=== PATIENT | male | born 1975 | race Caucasian/White ===

== ENCOUNTER → 2016-08-03 | Outpatient (CLI) | payer BC ==
[~2016-08-03] MED LIST: SUMA100T15 PO
== END | disposition home or self-care (01) ==
LOC: LAB 09:27
DX: L94.0 Localized scleroderma [morphea] (principal)
CPT/HCPCS: 86038

== ENCOUNTER 2016-08-19 20:05 | Emergency (ER) | payer BC ==
[~2016-08-19] VITALS: Ht 182.9 cm; Wt 77.1 kg
[2016-08-19 21:01] LABS: Basophils # (auto) 0 uL; Basophils % (auto) 0.4 % (0.0-2.0); Eosinophils # (auto) 0.3 uL; Eosinophils % (auto) 3.5 % (0.0-7.0); Hematocrit 48.7 % (41.0-53.0); Hemoglobin 16.4 g/dL (13.5-17.5); Lymphocytes # (auto) 2.8 uL; Lymphocytes % (auto) 27.8 % (10.0-50.0); Mean Corpuscular Hemoglobin 28.4 pg (28.0-32.0); Mean Corpuscular Hgb Conc. 33.7 g/dL (32.0-36.0); Mean Corpuscular Volume 84.4 fL (80.0-100.0); Mean Platelet Volume 9.5 fL (7.4-10.4); Monocytes # (auto) 0.7 uL; Monocytes % (auto) 6.5 % (0.0-12.0); Neutrophils # (auto) 6.3 uL; Neutrophils % (auto) 61.8 % (37.0-80.0); Platelet Count (auto) 255 10^3/uL (140-450); White Blood Cell 10.1 10^3/uL (4.4-10.8)
[2016-08-19 21:15] LABS: Urine Bilirubin Negative (Negative); Urine Blood Negative /uL (Negative); Urine Color Yellow (Yellow); Urine Glucose Normal (Normal); Urine Ketone Negative (Negative); Urine Nitrite Negative (Negative); Urine RBC <1 /hpf (0 - 3); Urine Urobilinogen Normal (Negative); Urine pH 5.5 (5.0-8.0)
[2016-08-19 22:09] LABS: Albumin 4.4 g/dL (3.4-5.0); Alkaline Phosphatase 93 U/L (45-117); Anion Gap 7 (5-15); Aspartate Aminotransferase 32 U/L (15-37); BUN/Creatinine Ratio 9.1; Bilirubin, Total 0.5 mg/dL (0.2-1.0); Blood Urea Nitrogen 12 mg/dL (7-18); Calcium 9.1 mg/dL (8.5-10.1); Carbon Dioxide 28 mmol/L (21-32); Chloride 107 mmol/L (98-107); GFR African American 77 mL/min; GFR Non-African American 64 mL/min; Glucose 102 mg/dL (74-106); Magnesium 2.4 mg/dL (1.6-2.6); Sodium 142 mmol/L (136-145); Total Protein 8.2 g/dL (6.4-8.2)
[2016-08-20] MEDS ORDERED: LORazepam 2MG/ML-1ML VIAL IV ONE (02:00)
[2016-08-20 03:29] VITALS: BP 112/76
== END 2016-08-20 03:34 | disposition home or self-care (01) ==
LOC: ER 20:05
DX: R51 Headache (principal); F41.9 Anxiety disorder, unspecified; F32.9 Major depressive disorder, single episode, unspecified; K21.9 Gastro-esophageal reflux disease without esophagitis; E78.5 Hyperlipidemia, unspecified
CPT/HCPCS: 36415; 70450; 80053; 81001; 83735; 84484; 85025; 93005; 94761; 96374; 99285; G0434; J2060

== ENCOUNTER → 2016-12-10 | Outpatient (CLI) | payer BC | END | disposition home or self-care (01) | LOC: XYW 08:25 | PROVIDERS: ATTEND Internal Medicine Cardiovascular Disease | DX: R07.9 Chest pain, unspecified (principal) | CPT/HCPCS: 93017; 93306 ==

== ENCOUNTER → 2017-01-14 | Outpatient (CLI) | payer BC ==
[2017-01-14 11:52] LABS: Basophils # (auto) 0 uL; Basophils % (auto) 0.8 % (0.0-2.0); Eosinophils # (auto) 0.3 uL; Eosinophils % (auto) 5.3 % (0.0-7.0); Hematocrit 46.2 % (41.0-53.0); Hemoglobin 16.3 g/dL (13.5-17.5); Lymphocytes # (auto) 1.9 uL; Lymphocytes % (auto) 33.4 % (10.0-50.0); Mean Corpuscular Hemoglobin 30.2 pg (28.0-32.0); Mean Corpuscular Hgb Conc. 35.3 g/dL (32.0-36.0); Mean Corpuscular Volume 85.4 fL (80.0-100.0); Mean Platelet Volume 9.1 fL (7.4-10.4); Monocytes # (auto) 0.4 uL; Monocytes % (auto) 6.5 % (0.0-12.0); Platelet Count (auto) 213 10^3/uL (140-450); Red Cell Distribution Width 13.1 % (11.6-16.0); White Blood Cell 5.6 10^3/uL (4.4-10.8)
[2017-01-14 12:00] LABS: Urine Bilirubin Negative (Negative); Urine Blood Negative /uL (Negative); Urine Color Yellow (Yellow); Urine Glucose Normal (Normal); Urine Ketone Negative (Negative); Urine Mucus FEW (None Seen); Urine Nitrite Negative (Negative); Urine RBC 1 /hpf (0 - 3); Urine Urobilinogen Normal (Negative); Urine pH 5.5 (5.0-8.0)
[2017-01-14 12:39] LABS: Albumin 4.2 g/dL (3.4-5.0); BUN/Creatinine Ratio 11.6; Bilirubin, Total 0.7 mg/dL (0.2-1.0); Potassium 3.9 mmol/L (3.5-5.1); Total Protein 7.5 g/dL (6.4-8.2)
[2017-01-15 09:07] LABS: Rheumatoid Arthritis Factor <10.0 IU/mL (0.0-13.9)
== END | disposition home or self-care (01) ==
LOC: LAB 11:03
DX: K21.9 Gastro-esophageal reflux disease without esophagitis (principal); R79.89 Other specified abnormal findings of blood chemistry
CPT/HCPCS: 36415; 80053; 81001; 84443; 85025; 86038; 86431

== ENCOUNTER → 2017-06-03 | Outpatient (CLI) | payer BC ==
[2017-06-03 13:35] LABS: Basophils # (auto) 0 uL; Basophils % (auto) 0.6 % (0.0-2.0); Eosinophils # (auto) 0.3 uL; Eosinophils % (auto) 5.5 % (0.0-7.0); Hematocrit 43.5 % (41.0-53.0); Hemoglobin 14.8 g/dL (13.5-17.5); Lymphocytes # (auto) 1.9 uL; Lymphocytes % (auto) 31.3 % (10.0-50.0); Mean Corpuscular Hemoglobin 29.3 pg (28.0-32.0); Mean Corpuscular Hgb Conc. 34.1 g/dL (32.0-36.0); Mean Corpuscular Volume 86.1 fL (80.0-100.0); Monocytes # (auto) 0.5 uL; Monocytes % (auto) 7.9 % (0.0-12.0); Neutrophils # (auto) 3.2 uL; Neutrophils % (auto) 54.7 % (37.0-80.0); Platelet Count (auto) 206 10^3/uL (140-450); Red Blood Cells 5.06 10^6/uL (4.5-5.90); Red Cell Distribution Width 12.8 % (11.8-14.3); White Blood Cell 5.9 10^3/uL (4.4-10.8)
[2017-06-03 13:50] LABS: Urine Bacteria NONE SEEN /hpf (None Seen); Urine Blood Negative /uL (Negative); Urine Mucus FEW (None Seen); Urine Sperm PRESENT /hpf (None Seen); Urine WBC 1 /hpf (0 - 3)
[2017-06-03 14:16] LABS: Bilirubin, Total 0.4 mg/dL (0.2-1.0); Calcium 8.6 mg/dL (8.5-10.1); Potassium 3.9 mmol/L (3.5-5.1); Total Protein 7.2 g/dL (6.4-8.2)
== END | disposition home or self-care (01) ==
LOC: LAB 13:15
PROVIDERS: ATTEND Internal Medicine
DX: R10.9 Unspecified abdominal pain (principal); R11.2 Nausea with vomiting, unspecified
CPT/HCPCS: 36415; 80053; 81001; 82150; 83690; 85025; 85652

== ENCOUNTER 2017-09-08 06:00 | Inpatient (IN) | payer BC ==
[2017-09-06 10:41] LABS: Urine WBC None Seen /hpf (0 - 3)
[2017-09-06 11:05] LABS: Basophils # (auto) 0 uL; Basophils % (auto) 0.9 % (0.0-2.0); Eosinophils # (auto) 0.3 uL; Eosinophils % (auto) 4.9 % (0.0-7.0); Hematocrit 43.6 % (41.0-53.0); Hemoglobin 14.9 g/dL (13.5-17.5); Lymphocytes # (auto) 1.7 uL; Lymphocytes % (auto) 32.1 % (10.0-50.0); Mean Corpuscular Hemoglobin 30.1 pg (28.0-32.0); Mean Corpuscular Hgb Conc. 34.2 g/dL (32.0-36.0); Mean Corpuscular Volume 87.9 fL (80.0-100.0); Monocytes # (auto) 0.5 uL; Neutrophils # (auto) 2.8 uL; Neutrophils % (auto) 53.1 % (37.0-80.0); Platelet Count (auto) 227 10^3/uL (140-450); Red Blood Cells 4.96 10^6/uL (4.5-5.90); Red Cell Distribution Width 14.2 % (11.8-14.3); White Blood Cell 5.3 10^3/uL (4.4-10.8)
[2017-09-06 11:07] LABS: Urine Bacteria NONE SEEN /hpf (None Seen); Urine Blood Negative /uL (Negative); Urine Mucus FEW (None Seen); Urine Specific Gravity 1.015 (1.001-1.035)
[2017-09-06 11:23] LABS: INR 0.94 (0.9-1.15); Partial Thromboplastin Time 25.5 sec (22.64-33.71); Prothrombin Time 10.2 sec (9.37-12.3)
[2017-09-06 11:27] LABS: BUN/Creatinine Ratio 10.9; Bilirubin, Total 0.5 mg/dL (0.2-1.0); Potassium 4.3 mmol/L (3.5-5.1); Total Protein 7.4 g/dL (6.4-8.2)
[~2017-09-08] VITALS: Ht 182.9 cm; Wt 79.0 kg
[~2017-09-08 06:00] MED LIST changes: +BUPR300T28 PO; +BUSP15TA60 PO; +FLUO-125 PO; +QUET25TA46 PO
[2017-09-08] MEDS ORDERED: ceFAZolin 1GM/50ML 50 ML IV ONE (06:36)
[2017-09-08] MEDS ORDERED: fentaNYL CITRATE 100 MCG/2 ML VL ONE (07:33)
[2017-09-08] MEDS ORDERED: MIDAZOLAM HCL 1MG/1ML-2 ML VIAL ONE (07:34)
[2017-09-08] MEDS ORDERED: MEPERIDINE HCL (50 MG/ML) 1 ML VIAL ONE (07:34)
[2017-09-08] MEDS ORDERED: PROPOFOL 10 MG/ML 20 ML IV ONE (07:38)
[2017-09-08] MEDS ORDERED: DEXAMETHASONE SOD PHOS 10MG/1ML VIAL INJ ONE (07:38)
[2017-09-08] MEDS ORDERED: GLYCOPYRROLATE 0.2 MG/ML 1ML VIAL ONE (07:53)
[2017-09-08] MEDS ORDERED: NEOSTIGMINE 1 MG/ML INJ (10mg/10ML VIAL) ONE (07:53)
[2017-09-08] MEDS ORDERED: ROCURONIUM 10MG/ML 10ML VIAL IV ONE (07:53)
[2017-09-08] MEDS ORDERED: LABETALOL HCL 5 MG/ML 4ML SYRINGE IV PRN (08:00)
[2017-09-08] MEDS ORDERED: KETOROLAC TROMETH 30 MG/ML 1ML VIAL IV ONE (08:00)
[2017-09-08] MEDS ORDERED: ONDANSETRON HCL 4 MG/2 ML VIAL IV ONE (08:00)
[2017-09-08] MEDS ORDERED: MORPHINE SULFATE 8mg/ml INJ SDV IV ONE (08:00)
[2017-09-08] MEDS ORDERED: MIDAZOLAM HCL 1MG/1ML-2 ML VIAL IV PRN (08:00)
[2017-09-08] MEDS ORDERED: ePHEDrine SULFATE 50 MG/ML AMP IV PRN (08:00)
[2017-09-08] MEDS: MORPHINE SULFATE 8mg/ml INJ SDV IV PRN ×5 (08:57→21:52)
[2017-09-08 12:00] VITALS: BP 113/71
[2017-09-08] MEDS ORDERED: ONDANSETRON HCL 4 MG/2 ML VIAL IV PRN ×2 (12:00→12:30)
[2017-09-08] MEDS ORDERED: SUMAtriptan SUCCINATE 25 MG TAB PO PRN ×2 (12:30→15:15)
[2017-09-08] MEDS ORDERED: LORazepam 2MG/ML-1ML VIAL IV PRN (12:30)
[2017-09-08] MEDS ORDERED: HYDROcodone-ACET 5/325MG TAB PO PRN (12:30)
[2017-09-08] MEDS: D5W/SOD CHL 0.45%/KCL 20MEQ 1,000 ML IV SCH (12:43)
[2017-09-08] MEDS: busPIRone HCL 10 MG TAB PO ONE ×2 (12:43→12:45)
[2017-09-08] MEDS: PANTOPRAZOLE 40 MG TAB PO ONE ×2 (12:44→12:45)
[2017-09-08] MEDS: FLUoxetine HCL 20 MG CAP PO ONE ×2 (12:44→12:45)
[2017-09-08] MEDS: ceFAZolin 1GM/50ML 50 ML IV SCH ×2 (15:08→21:51)
[2017-09-08 16:59] VITALS: BP 107/65
[2017-09-08 21:34] VITALS: BP 115/69
[2017-09-08] MEDS: busPIRone HCL 10 MG TAB PO SCH (21:51)
[2017-09-08] MEDS ORDERED: QUEtiapine FUMARATE 25 MG TAB PO SCH (22:00)
[2017-09-09] MEDS: D5W/SOD CHL 0.45%/KCL 20MEQ 1,000 ML IV SCH (01:20)
[2017-09-09] MEDS: MORPHINE SULFATE 8mg/ml INJ SDV IV PRN (01:46)
[2017-09-09] MEDS: ceFAZolin 1GM/50ML 50 ML IV SCH (05:24)
[2017-09-09 05:54] LABS: Basophils # (auto) 0 uL; Basophils % (auto) 0.2 % (0.0-2.0); Eosinophils # (auto) 0 uL; Eosinophils % (auto) 0.3 % (0.0-7.0); Hematocrit 37.4 % (41.0-53.0); Hemoglobin 13.3 g/dL (13.5-17.5); Lymphocytes # (auto) 1.4 uL; Lymphocytes % (auto) 14.4 % (10.0-50.0); Mean Corpuscular Hemoglobin 31.5 pg (28.0-32.0); Mean Corpuscular Hgb Conc. 35.5 g/dL (32.0-36.0); Mean Corpuscular Volume 88.7 fL (80.0-100.0); Monocytes # (auto) 0.7 uL; Monocytes % (auto) 7.3 % (0.0-12.0); Neutrophils # (auto) 7.5 uL; Neutrophils % (auto) 77.8 % (37.0-80.0); Platelet Count (auto) 182 10^3/uL (140-450); Red Blood Cells 4.22 10^6/uL (4.5-5.90); White Blood Cell 9.6 10^3/uL (4.4-10.8)
[2017-09-09 06:36] LABS: BUN/Creatinine Ratio 10.6; Bilirubin, Total 0.4 mg/dL (0.2-1.0); Calcium 7.6 mg/dL (8.5-10.1); Potassium 5.1 mmol/L (3.5-5.1); Total Protein 5.5 g/dL (6.4-8.2)
[2017-09-09 08:16] VITALS: BP 105/73
[2017-09-09] MEDS: busPIRone HCL 10 MG TAB PO SCH (09:43)
[2017-09-09] MEDS ORDERED: PANTOPRAZOLE 40 MG TAB PO SCH (10:00)
[2017-09-09] MEDS ORDERED: FLUoxetine HCL 20 MG CAP PO SCH (10:00)
[2017-09-09] MEDS ORDERED: SUMAtriptan SUCCINATE 25 MG TAB PO SCH (10:00)
[2017-09-09 11:42] VITALS: BP 108/76
== END 2017-09-09 13:30 | disposition home or self-care (01) | DRG 419 ==
LOC: SUR 06:00 → WEST WING 06:01
PROVIDERS: ADMIT Surgery; ATTEND Internal Medicine
PROC: 0FT44ZZ Resection of Gallbladder, Percutaneous Endoscopic Approach (ICD-10-PCS; principal; 2017-09-08 07:32)
DX: K80.10 Calculus of gallbladder with chronic cholecystitis without obstruction (principal); F15.10 Other stimulant abuse, uncomplicated; F31.9 Bipolar disorder, unspecified; I10 Essential (primary) hypertension; F41.9 Anxiety disorder, unspecified; G43.909 Migraine, unspecified, not intractable, without status migrainosus; Z90.49 Acquired absence of other specified parts of digestive tract; Z95.2 Presence of prosthetic heart valve; Z79.899 Other long term (current) drug therapy
CPT/HCPCS: 36415; 80053; 81001; 85025; 85610; 85730; 86850; 86900; 86901; J0690; J1100; J1885; J2250; J2270; J2405; J2704

== ENCOUNTER 2019-03-22 12:26 | Inpatient (IN) | payer BC ==
[~2019-03-22] VITALS: Ht 185.4 cm; Wt 82.4 kg
[2019-03-22 18:38] LABS: Basophils # (auto) 0.1 uL; Basophils % (auto) 0.8 % (0.0-2.0); Eosinophils # (auto) 0.3 uL; Eosinophils % (auto) 3.7 % (0.0-7.0); Hematocrit 45.7 % (41.0-53.0); Hemoglobin 15.5 g/dL (13.5-17.5); Lymphocytes # (auto) 1.7 uL; Lymphocytes % (auto) 25.5 % (10.0-50.0); Mean Corpuscular Hemoglobin 30.6 pg (28.0-32.0); Mean Corpuscular Hgb Conc. 33.9 g/dL (32.0-36.0); Mean Corpuscular Volume 90.4 fL (80.0-100.0); Monocytes # (auto) 0.5 uL; Monocytes % (auto) 7.9 % (0.0-12.0); Neutrophils # (auto) 4.2 uL; Neutrophils % (auto) 62.1 % (37.0-80.0); Nucleated Red Blood Cells % 0.1 %; Platelet Count (auto) 236 10^3/uL (140-450); Red Blood Cells 5.05 10^6/uL (4.5-5.90); Red Cell Distribution Width 13.3 % (11.8-14.3); White Blood Cell 6.8 10^3/uL (4.4-10.8)
[2019-03-22 18:52] LABS: Albumin 3.8 g/dL (3.4-5.0); BUN/Creatinine Ratio 15.4; Calcium 8.9 mg/dL (8.5-10.1); Magnesium 2.3 mg/dL (1.6-2.6); Potassium 4.2 mmol/L (3.5-5.1)
[2019-03-22 18:55] LABS: Bilirubin, Total 0.3 mg/dL (0.2-1.0); Total Protein 7.6 g/dL (6.4-8.2)
[2019-03-22] MEDS ORDERED: ACETAMINOPHEN 325 MG TAB PO PRN (21:15)
[2019-03-22] MEDS ORDERED: TEMAZEPAM 15 MG CAP PO PRN (21:15)
[2019-03-22] MEDS ORDERED: MORPHINE SULFATE 4 MG/ML SYR/VIAL IV PRN (21:15)
[2019-03-22] MEDS ORDERED: HYDROcodone-ACET 5/325MG TAB PO PRN (21:15)
[2019-03-22] MEDS ORDERED: ONDANSETRON HCL 4 MG/2 ML VIAL IV PRN (21:15)
[2019-03-23] MEDS: busPIRone HCL 10 MG TAB PO SCH ×4 (04:24→21:56)
[2019-03-23] MEDS: QUEtiapine FUMARATE 25 MG TAB PO SCH ×2 (04:25→21:56)
[2019-03-23] MEDS: FAMOTIDINE 20 MG TAB PO SCH ×3 (04:25→21:56)
[2019-03-23] MEDS ORDERED: buPROPion HCL 75 MG TAB PO SCH (07:00)
--- NOTE | 2019-03-23 07:50 | NUR ---
MS admit from ER Patient admitted to MS. Patient oriented to primary RN, unit, room, bed, and unit policies regarding patient care and visiting hours. Spouse at bedside. Bed in lowest, locked position with side rails up x2 and call light within reach. All questions and concerns addressed and encouraged to call if they need something, verbalized understanding. Will continue to monitor Q1hr/PRN.
[2019-03-23 08:30] VITALS: BP 110/69
[2019-03-23 09:22] LABS: INR 1.01 (0.9-1.15); Partial Thromboplastin Time 25.5 sec (23.64-32.05)
[2019-03-23] MEDS ORDERED: SUMAtriptan SUCCINATE 25 MG TAB PO PRN (10:30)
[2019-03-23] MEDS: buPROPion HCL 75 MG TAB PO SCH (10:46)
[2019-03-23] MEDS: FLUoxetine HCL 20 MG CAP PO SCH (10:46)
[2019-03-23 13:00] VITALS: BP 116/70
[2019-03-23 14:48] LABS: Urine Bacteria NONE SEEN /hpf (None Seen); Urine Blood Negative /uL (Negative); Urine Specific Gravity 1.013 (1.001-1.035); Urine WBC <1 /hpf (0 - 3)
--- NOTE | 2019-03-23 15:14 | NUR ---
OFF UNIT Patient taken off unit via bed for scheduled surgical procedure. No S/S of distress noted.
[2019-03-23] MEDS ORDERED: LIDOCAINE 1% (LOCAL ANESTH.) PF 5ml SDV ONE (15:39)
[2019-03-23] MEDS ORDERED: SUCCINYLCHOLINE CHLORIDE 20 MG/ML 10ML VIAL IV ONE (15:39)
[2019-03-23] MEDS ORDERED: MIDAZOLAM HCL 1MG/1ML-2 ML VIAL ONE (15:41)
[2019-03-23] MEDS ORDERED: ROCURONIUM 10MG/ML 10ML VIAL IV ONE (15:41)
[2019-03-23] MEDS ORDERED: PROPOFOL 10 MG/ML 20 ML IV ONE (15:42)
[2019-03-23] MEDS ORDERED: ceFAZolin 1GM/50ML 50 ML IV ONE (15:45)
[2019-03-23] MEDS ORDERED: METOCLOPRAMIDE HCL 5MG/ml INJ 2ml VIAL ONE (15:46)
[2019-03-23] MEDS ORDERED: fentaNYL CITRATE 100 MCG/2 ML VL ONE (15:55)
[2019-03-23] MEDS ORDERED: ePHEDrine SULFATE 50 MG/ML AMP IV PRN (16:00)
[2019-03-23] MEDS ORDERED: ONDANSETRON HCL 4 MG/2 ML VIAL IV PRN ×2 (16:00→16:45)
[2019-03-23] MEDS ORDERED: NALOXONE HCL 0.4 MG/ML VIAL IV PRN (16:00)
[2019-03-23] MEDS ORDERED: HYDROmorphone HCL 2 MG/ML VL IV PRN (16:00)
[2019-03-23] MEDS: HYDROmorphone HCL 2 MG/ML VL IV PRN ×3 (16:51→21:56)
--- NOTE | 2019-03-23 17:35 | NUR ---
RETURN TO UNIT Patient returned to unit via bed s/p hernia repair. Medial abdominal dressing clean/dry/intact and abdominal binder is in place. Patient placed on 1L O2 via nasal cannula. Patient currently resting in bed with no S/S of distress noted, will continue to monitor Q1hr/PRN.
[2019-03-23] MEDS: D5W/SOD CHL 0.45%/KCL 20MEQ 1,000 ML IV SCH (18:30)
[2019-03-23] MEDS: KETOROLAC TROMETH 30 MG/ML 1ML VIAL IV PRN (18:30)
--- NOTE | 2019-03-23 19:21 | NUR ---
CLOSING NOTE Endorsed care of patient to NOC Casper WESTBROOK.
--- NOTE | 2019-03-23 20:05 | NUR ---
open note assumed care of pt. upon entering room pt eyes closed, breathing is even and unlabored. pt on room air no distress noted. bed locked, low and 2x rails up. call light in reach, this nurse will return at later time to update on plan of care. call light in reach.
[2019-03-23 22:37] VITALS: BP 104/67
[2019-03-24] MEDS: ceFAZolin 1GM/50ML 50 ML IV SCH ×3 (00:19→17:13)
[2019-03-24] MEDS: D5W/SOD CHL 0.45%/KCL 20MEQ 1,000 ML IV SCH ×3 (02:45→22:45)
--- NOTE | 2019-03-24 05:01 | NUR ---
pt able to ambulate to restroom with standby assistance. tolerated well. pt reports voiding urine. pt denies having flatus, bowel sounds are active x4 quadrants.
[2019-03-24] MEDS: HYDROmorphone HCL 2 MG/ML VL IV PRN ×5 (05:24→20:31)
[2019-03-24 06:12] VITALS: BP 104/67
[2019-03-24 06:21] LABS: Basophils # (auto) 0 uL; Basophils % (auto) 0.5 % (0.0-2.0); Eosinophils # (auto) 0.2 uL; Eosinophils % (auto) 2.7 % (0.0-7.0); Hematocrit 42.3 % (41.0-53.0); Hemoglobin 14.6 g/dL (13.5-17.5); Lymphocytes # (auto) 1.2 uL; Mean Corpuscular Hemoglobin 31.4 pg (28.0-32.0); Mean Corpuscular Hgb Conc. 34.7 g/dL (32.0-36.0); Mean Corpuscular Volume 90.5 fL (80.0-100.0); Monocytes # (auto) 0.7 uL; Monocytes % (auto) 9.5 % (0.0-12.0); Neutrophils # (auto) 5.3 uL; Neutrophils % (auto) 71.3 % (37.0-80.0); Nucleated Red Blood Cells % 0.1 %; Platelet Count (auto) 192 10^3/uL (140-450); Red Blood Cells 4.67 10^6/uL (4.5-5.90); Red Cell Distribution Width 13.6 % (11.8-14.3); White Blood Cell 7.5 10^3/uL (4.4-10.8)
[2019-03-24 06:42] LABS: Calcium 7.8 mg/dL (8.5-10.1); Potassium 4.1 mmol/L (3.5-5.1)
[2019-03-24 07:54] LABS: BUN/Creatinine Ratio 12.6
--- NOTE | 2019-03-24 07:57 | NUR ---
OPENING SHIFT NOTE: PATIENT RESTING IN BED, AWAKE, A/OX4. BED IN LOWEST LOCKED POSITION. PATIENT WEARING SCD'S. RESPIRATIONS EVEN AND UNLABORED. BOWEL SOUNDS HYPOACTIVE IN ALL QUADRANTS, PATIENT DENIES PASSING FLATUS. WILL CONTINUE TO MONITOR, CALL LIGHT WITHIN REACH.
[2019-03-24] MEDS: busPIRone HCL 10 MG TAB PO SCH ×3 (08:43→22:32)
[2019-03-24 09:28] VITALS: BP 115/74
[2019-03-24] MEDS: FLUoxetine HCL 20 MG CAP PO SCH (09:42)
[2019-03-24] MEDS: buPROPion HCL 75 MG TAB PO SCH (09:42)
[2019-03-24] MEDS: FAMOTIDINE 20 MG TAB PO SCH ×2 (09:42→21:34)
--- NOTE | 2019-03-24 12:15 | NUR ---
UPDATE: CALL FROM FAMILY, UPDATED THEM OF PATIENT'S NO-PASSWORD, PATIENT APPROVED OF THIS RN SPEAKING WITH FOR UPDATES. INFORMED OF CURRENT CLEAR LIQUID DIET AND ADVANCING DIET THE PATIENT TOLERATES PRIOR TO GOING HOME. PATIENT AND VERBALIZED UNDERSTANDING. BOWEL SOUNDS ACTIVE AFTER PATIENT RETURNED TO BED FROM AMBULATING.
[2019-03-24 12:44] VITALS: BP 114/74
--- NOTE | 2019-03-24 15:18 | NUR ---
PATIENT REPORTS PASSING FLATUS WHEN IN RESTROOM. NO BM REPORTED.
[2019-03-24 17:00] VITALS: BP 120/71
--- NOTE | 2019-03-24 18:40 | NUR ---
PATIENT RESTING IN BED. ALL CONCERNS ADDRESSED. PATIENT HAS CALL LIGHT WITHIN REACH, AND BED IN IN LOWEST LOCKED POSITION. IV PATENT AND RUNNING. WILL ENDORSE CARE TO NOC RN.
--- NOTE | 2019-03-24 19:10 | NUR ---
CARE ENDORSED TO BARBY [facility]BR[facility]
[2019-03-24 22:04] VITALS: BP 109/49
[2019-03-24] MEDS: QUEtiapine FUMARATE 25 MG TAB PO SCH (22:32)
[2019-03-24] MEDS ORDERED: SUMAtriptan SUCCINATE 25 MG TAB PO ONE ×2 (23:15→23:21)
[2019-03-25] MEDS: ceFAZolin 1GM/50ML 50 ML IV SCH ×3 (00:22→17:30)
[2019-03-25] MEDS: HYDROmorphone HCL 2 MG/ML VL IV PRN ×5 (00:23→20:22)
[2019-03-25 05:00] VITALS: BP 127/67
[2019-03-25] MEDS: busPIRone HCL 10 MG TAB PO SCH ×3 (05:51→22:15)
[2019-03-25] MEDS: D5W/SOD CHL 0.45%/KCL 20MEQ 1,000 ML IV SCH ×2 (05:52→17:51)
--- NOTE | 2019-03-25 07:25 | NUR ---
Opening Shift Note Assumed care of patient, awake, alert, and oriented x4, and is ambulating in the hallway independently. No S/S of distress/SOB, but patient reporting abdominal incision pain of 4/10. IV is in the left forearm 18 gauge, asymptomatic, intact, patent, and infusing D5 1/2 NS and 20 meQ of potassium at 100 mL/hour. Abdominal incision is clean, dry, and intact, and abdominal binder is in place. Bed is locked and in lowest position and call light is within reach. Instructed on POC and to call for assist PRN, and patient verbalized understanding. Will continue to monitor for changes Q1hr and PRN.
[2019-03-25 09:00] VITALS: BP 120/74
[2019-03-25] MEDS: FLUoxetine HCL 20 MG CAP PO SCH (10:18)
[2019-03-25] MEDS: buPROPion HCL 75 MG TAB PO SCH (10:18)
[2019-03-25] MEDS: FAMOTIDINE 20 MG TAB PO SCH ×2 (10:18→22:15)
--- NOTE | 2019-03-25 12:28 | NUR ---
Dr. Ziegler, Hospitalist, at bedside.
[2019-03-25 13:00] VITALS: BP 100/65
[2019-03-25 17:32] VITALS: BP 97/65
[2019-03-25 22:00] VITALS: BP 119/75
[2019-03-25] MEDS: QUEtiapine FUMARATE 25 MG TAB PO SCH (22:15)
[2019-03-26] MEDS: ceFAZolin 1GM/50ML 50 ML IV SCH ×2 (00:05→10:04)
[2019-03-26] MEDS: HYDROmorphone HCL 2 MG/ML VL IV PRN (02:05)
[2019-03-26 04:57] VITALS: BP 100/69
[2019-03-26] MEDS: D5W/SOD CHL 0.45%/KCL 20MEQ 1,000 ML IV SCH (05:21)
[2019-03-26] MEDS: busPIRone HCL 10 MG TAB PO SCH (05:22)
[2019-03-26 06:08] LABS: Basophils # (auto) 0 uL; Basophils % (auto) 0.6 % (0.0-2.0); Eosinophils # (auto) 0.2 uL; Hematocrit 41.4 % (41.0-53.0); Hemoglobin 14.4 g/dL (13.5-17.5); Lymphocytes # (auto) 1.9 uL; Lymphocytes % (auto) 30.1 % (10.0-50.0); Mean Corpuscular Hemoglobin 31.6 pg (28.0-32.0); Mean Corpuscular Hgb Conc. 34.9 g/dL (32.0-36.0); Mean Corpuscular Volume 90.4 fL (80.0-100.0); Monocytes # (auto) 0.8 uL; Monocytes % (auto) 13.2 % (0.0-12.0); Neutrophils # (auto) 3.2 uL; Neutrophils % (auto) 52.1 % (37.0-80.0); Nucleated Red Blood Cells % 0.1 %; Platelet Count (auto) 200 10^3/uL (140-450); Red Blood Cells 4.58 10^6/uL (4.5-5.90); Red Cell Distribution Width 13.4 % (11.8-14.3); White Blood Cell 6.2 10^3/uL (4.4-10.8)
[2019-03-26 06:20] LABS: Calcium 8.9 mg/dL (8.5-10.1); Potassium 4.4 mmol/L (3.5-5.1)
[2019-03-26 06:25] LABS: BUN/Creatinine Ratio 7.7
--- NOTE | 2019-03-26 07:30 | NUR ---
Opening Shift Note Assumed care of patient, awake, alert, and oriented x4. No S/S of distress/SOB, but patient reporting abdominal incision pain of 3/10. IV is in the left forearm 18 gauge, asymptomatic, intact, patent, and infusing D5 1/2 NS and 20 meQ of potassium at 100 mL/hour. Abdominal incision is clean, dry, and intact, and changed abdominal binder. Bed is locked and in lowest position and call light is within reach. Instructed on POC and to call for assist PRN, and patient verbalized understanding. Will continue to monitor for changes Q1hr and PRN.
[2019-03-26 09:00] VITALS: BP 105/66
[2019-03-26] MEDS: FLUoxetine HCL 20 MG CAP PO SCH (10:05)
[2019-03-26] MEDS: buPROPion HCL 75 MG TAB PO SCH (10:05)
[2019-03-26] MEDS: FAMOTIDINE 20 MG TAB PO SCH (10:05)
[2019-03-26] MEDS: KETOROLAC TROMETH 30 MG/ML 1ML VIAL IV PRN (10:25)
[2019-03-26 11:37] VITALS: BP 105/66
--- NOTE | 2019-03-26 11:45 | NUR ---
Dr. Ziegler, Hospitalist, at bedside; new orders received.
--- NOTE | 2019-03-26 12:39 | NUR ---
Discharge instructions given as ordered. Encourage to follow up with PMD as instructed. All questions and concerns addressed. Patient verbalized understanding. Medication reconciliation form completed and copy given to patient. IV removed with catheter intact, pressure dressing applied. Patient walked to vehicle with all personal belongings, accompanied by family member. No distress noted at time of departure.
== END 2019-03-26 12:00 | disposition home or self-care (01) | DRG 355 ==
LOC: ER 12:26 → OVERFLOW 12:27 → EAST 03-23 08:03
PROVIDERS: ADMIT Nurse Practitioner; ATTEND Internal Medicine Nephrology
PROC: 0WQF0ZZ Repair Abdominal Wall, Open Approach (ICD-10-PCS; principal; 2019-03-23 15:36)
DX: K43.6 Other and unspecified ventral hernia with obstruction, without gangrene (principal); E78.5 Hyperlipidemia, unspecified; F41.9 Anxiety disorder, unspecified; F31.9 Bipolar disorder, unspecified; K21.9 Gastro-esophageal reflux disease without esophagitis; Z82.49 Family history of ischemic heart disease and other diseases of the circulatory system; Z90.49 Acquired absence of other specified parts of digestive tract; Z95.2 Presence of prosthetic heart valve; Z79.899 Other long term (current) drug therapy; Z83.42 Family history of familial hypercholesterolemia; Z83.511 Family history of glaucoma
CPT/HCPCS: 36415; 74176; 80048; 80053; 81001; 83735; 85025; 85610; 85730; 86850; 86900; 86901; 96365; 96375; G0378; J0330; J0690; J1885; J2250; J2405; J2704

== ENCOUNTER 2020-01-24 22:28 | Emergency (ER) | payer BC ==
[~2020-01-24] VITALS: Ht 182.9 cm; Wt 68.0 kg
[2020-01-25] MEDS ORDERED: ONDANSETRON ODT 4 MG TAB PO ONE (01:00)
[2020-01-25 03:00] VITALS: BP 124/86
== END 2020-01-25 03:09 | disposition home or self-care (01) ==
LOC: ER 22:28
DX: S00.03XA Contusion of scalp, initial encounter (principal); S02.85XA Fracture of orbit, unspecified, initial encounter for closed fracture; K21.9 Gastro-esophageal reflux disease without esophagitis; E78.5 Hyperlipidemia, unspecified; Z79.899 Other long term (current) drug therapy; Y08.89XA Assault by other specified means, initial encounter; Y93.89 Activity, other specified; Y92.89 Other specified places as the place of occurrence of the external cause; Y99.8 Other external cause status
CPT/HCPCS: 70450; 70486; 72125; 99285; Q0162

== ENCOUNTER → 2021-05-12 | Outpatient (CLI) | payer BC ==
[~2021-05-12] MED LIST changes: +QUET1TAB11 PO; -QUET25TA46 PO
== END | disposition home or self-care (01) ==
LOC: LAB 16:31
PROVIDERS: ATTEND Nurse Practitioner Family
DX: N39.0 Urinary tract infection, site not specified (principal); R30.0 Dysuria
CPT/HCPCS: 87086

== ENCOUNTER → 2021-06-19 | Outpatient (CLI) | payer BC | END | disposition home or self-care (01) | LOC: LAB 13:26 | PROVIDERS: ATTEND Urology | DX: N20.0 Calculus of kidney (principal); R39.0 Extravasation of urine | CPT/HCPCS: 87086; 87088; 87186 ==

== ENCOUNTER → 2021-07-28 | Day surgery (SDC) | payer BC ==
[2021-07-25 13:37] LABS: Basophils # (auto) 0.1 10 ^3/uL (0-0.2); Basophils % (auto) 1.2 % (0.0-2.0); Eosinophils # (auto) 0.2 10 ^3/uL (0-0.8); Eosinophils % (auto) 2.9 % (0.0-7.0); Hematocrit 45.4 % (41.0-53.0); Hemoglobin 15.6 g/dL (13.5-17.5); Lymphocytes # (auto) 1.9 10 ^3/uL (0.4-5.4); Mean Corpuscular Hemoglobin 28.9 pg (28.0-32.0); Mean Corpuscular Hgb Conc. 34.4 g/dL (32.0-36.0); Monocytes # (auto) 0.4 10 ^3/uL (0-1.3); Monocytes % (auto) 7.3 % (0.0-12.0); Neutrophils # (auto) 3.2 10 ^3/uL (1.6-8.6); Neutrophils % (auto) 55.6 % (37.0-80.0); Nucleated Red Blood Cells % 0.1 %; Red Cell Distribution Width 13.6 % (11.8-14.3); White Blood Cell 5.8 10^3/uL (4.4-10.8)
[2021-07-25 13:42] LABS: Urine Bacteria FEW /hpf (None Seen); Urine Blood Negative /uL (Negative); Urine Specific Gravity 1.013 (1.001-1.035); Urine Sperm PRESENT /hpf (None Seen); Urine WBC <1 /hpf (0 - 3)
[2021-07-25 14:20] LABS: INR 1.02 (0.9-1.15); Partial Thromboplastin Time 26.5 sec (23.6-33.0)
[2021-07-25 14:35] LABS: Albumin 4.1 g/dL (3.4-5.0); BUN/Creatinine Ratio 15.3; Calcium 9.1 mg/dL (8.5-10.1); Potassium 4.1 mmol/L (3.5-5.1)
[2021-07-25 14:38] LABS: Bilirubin, Total 0.5 mg/dL (0.2-1.0)
[~2021-07-28] VITALS: Ht 182.9 cm; Wt 74.8 kg
[~2021-07-28] MED LIST changes: +CARI1CAP PO; +CIPROFLOXACIN 400MG/200ML 200 ML IV ONE; +DexAMETHasone SOD PHOS 10MG/1ML VIAL INJ ONE; -FLUO-125 PO; +MIDAZOLAM HCL 2MG/2ML 2ml VIAL (1mg/ml) ONE; +MORPHINE SULFATE 4 MG/ML SYR/VIAL IV PRN; +ONDANSETRON HCL 4 MG/2 ML VIAL IV PRN; +ONDANSETRON HCL 4 MG/2 ML VIAL ONE; +PROPOFOL 10 MG/ML 20 ML IV ONE; -QUET1TAB11 PO; +QUET25TA37 PO; +SODIUM CHLORIDE LOCK 10 ML ONE; +fentaNYL CITRATE 100 MCG/2 ML VL ONE
[2021-07-28] MEDS: HYDROmorphone HCL 2 MG/ML VL IV PRN ×2 (11:10→11:20)
[2021-07-28 11:30] VITALS: BP 111/73
== END | disposition home or self-care (01) ==
LOC: SUR 08:02
PROVIDERS: ATTEND Urology
DX: R33.9 Retention of urine, unspecified (principal); E78.5 Hyperlipidemia, unspecified; F31.9 Bipolar disorder, unspecified; G43.909 Migraine, unspecified, not intractable, without status migrainosus; I20.9 Angina pectoris, unspecified; F41.9 Anxiety disorder, unspecified; Z20.822 Contact with and (suspected) exposure to COVID-19; Z98.890 Other specified postprocedural states; Z79.899 Other long term (current) drug therapy; Z82.49 Family history of ischemic heart disease and other diseases of the circulatory system; Z83.42 Family history of familial hypercholesterolemia
CPT/HCPCS: 36415; 51702; 80053; 81001; 85025; 85610; 85730; 87086; C1769; J0744; J1100; J1170; J2250; J2405; J2704; J3010; J7030; U0003

== ENCOUNTER 2021-09-25 09:15 | Emergency (ER) | payer BC ==
[~2021-09-25] VITALS: Ht 182.9 cm; Wt 77.1 kg
[2021-09-25 09:15] VITALS: BP 124/70
[~2021-09-25 09:15] MED LIST changes: -CIPROFLOXACIN 400MG/200ML 200 ML IV ONE; -DexAMETHasone SOD PHOS 10MG/1ML VIAL INJ ONE; -MIDAZOLAM HCL 2MG/2ML 2ml VIAL (1mg/ml) ONE; -MORPHINE SULFATE 4 MG/ML SYR/VIAL IV PRN; -ONDANSETRON HCL 4 MG/2 ML VIAL IV PRN; -ONDANSETRON HCL 4 MG/2 ML VIAL ONE; -PROPOFOL 10 MG/ML 20 ML IV ONE; -SODIUM CHLORIDE LOCK 10 ML ONE; -fentaNYL CITRATE 100 MCG/2 ML VL ONE
[2021-09-25] MEDS ORDERED: CIPR-173 PO (10:26)
[2021-09-25] MEDS ORDERED: ACET-1080 PO (10:26)
[2021-09-25] MEDS ORDERED: cefTRIAXone SOD 1,000 MG VL IM ONE (10:30)
[2021-09-25 10:55] LABS: Urine Bacteria MOD /hpf (None Seen); Urine Blood 2+ /uL (Negative); Urine Hyaline Cast FEW /lpf (0 - 2); Urine Mucus FEW (None Seen); Urine Specific Gravity 1.032 (1.001-1.035); Urine WBC 437 /hpf (0 - 3); Urine WBC Clumps PRESENT /hpf (None Seen)
== END 2021-09-25 10:38 | disposition home or self-care (01) ==
LOC: ER 09:15
DX: Z46.6 Encounter for fitting and adjustment of urinary device (principal); N39.0 Urinary tract infection, site not specified; K21.9 Gastro-esophageal reflux disease without esophagitis; E78.5 Hyperlipidemia, unspecified; Z79.2 Long term (current) use of antibiotics; Z79.899 Other long term (current) drug therapy
CPT/HCPCS: 51702; 81001; 96372; 99284; J0696

== ENCOUNTER → 2021-10-02 | Outpatient (CLI) | payer BC ==
[~2021-10-02] MED LIST changes: +ACET-1080 PO; +CIPR-173 PO
[2021-10-02 10:31] LABS: Potassium 4.5 mmol/L (3.5-5.1)
[2021-10-02 10:44] LABS: Albumin 3.4 g/dL (3.4-5.0); BUN/Creatinine Ratio 12.6; Bilirubin, Total 0.4 mg/dL (0.2-1.0); Total Protein 7.7 g/dL (6.4-8.2)
== END | disposition home or self-care (01) ==
LOC: LAB 09:46
PROVIDERS: ATTEND Internal Medicine
DX: E78.5 Hyperlipidemia, unspecified (principal)
CPT/HCPCS: 36415; 80053; 80061; 84443

== ENCOUNTER 2021-10-18 11:45 | Emergency (ER) | payer BC ==
[~2021-10-18] VITALS: Ht 185.4 cm; Wt 74.8 kg
[2021-10-18] MEDS ORDERED: LIDOCAINE 2% JELLY 11ml (GLYDO) UR ONE (15:00)
[2021-10-18 17:03] VITALS: BP 107/62
== END 2021-10-18 17:15 | disposition home or self-care (01) ==
LOC: ER 11:45
DX: R33.9 Retention of urine, unspecified (principal); E78.5 Hyperlipidemia, unspecified
CPT/HCPCS: 81002; 87086

== ENCOUNTER → 2021-11-06 | Outpatient (CLI) | payer BC | END | disposition home or self-care (01) | LOC: LAB 14:18 | PROVIDERS: ATTEND Urology | DX: N39.0 Urinary tract infection, site not specified (principal) | CPT/HCPCS: 87086; 87088; 87186 ==

== ENCOUNTER → 2022-08-12 | Outpatient (CLI) | payer BC ==
[2022-08-12 13:15] LABS: Basophils # (auto) 0.1 10 ^3/uL (0-0.2); Basophils % (auto) 0.9 % (0.0-2.0); Eosinophils # (auto) 0.4 10 ^3/uL (0-0.8); Eosinophils % (auto) 6.1 % (0.0-7.0); Hematocrit 48.7 % (41.0-53.0); Hemoglobin 16.8 g/dL (13.5-17.5); Lymphocytes # (auto) 2.5 10 ^3/uL (0.4-5.4); Lymphocytes % (auto) 40.1 % (10.0-50.0); Mean Corpuscular Hemoglobin 29.7 pg (28.0-32.0); Mean Corpuscular Hgb Conc. 34.4 g/dL (32.0-36.0); Mean Corpuscular Volume 86.2 fL (80.0-100.0); Monocytes # (auto) 0.4 10 ^3/uL (0-1.3); Monocytes % (auto) 6.9 % (0.0-12.0); Neutrophils # (auto) 2.8 10 ^3/uL (1.6-8.6); Red Blood Cells 5.65 10^6/uL (4.5-5.90); Red Cell Distribution Width 13.3 % (11.8-14.3); White Blood Cell 6.1 10^3/uL (4.4-10.8)
[2022-08-12 13:26] LABS: Urine Bacteria FEW /hpf (None Seen); Urine Blood Negative /uL (Negative); Urine WBC <1 /hpf (0 - 3)
[2022-08-12 13:37] LABS: INR 0.98 (0.9-1.15); Partial Thromboplastin Time 27.4 sec (24.6-33.4)
[2022-08-12 14:01] LABS: Calcium 9.2 mg/dL (8.5-10.1); Potassium 3.9 mmol/L (3.5-5.1)
[2022-08-12 14:07] LABS: BUN/Creatinine Ratio 10.2 (10.0-20.0); Bilirubin, Total 0.5 mg/dL (0.2-1.0); Total Protein 7.8 g/dL (6.4-8.2)
== END | disposition home or self-care (01) ==
LOC: LAB 12:42
PROVIDERS: ATTEND Urology
DX: Z01.812 Encounter for preprocedural laboratory examination (principal); R33.9 Retention of urine, unspecified
CPT/HCPCS: 36415; 80053; 81001; 85025; 85610; 85730; 87086

== ENCOUNTER → 2023-06-17 | Outpatient (CLI) | payer BC ==
[2023-06-17 09:29] LABS: Urine WBC None Seen /hpf (0 - 3)
[2023-06-17 09:53] LABS: Basophils # (auto) 0 10 ^3/uL (0-0.2); Basophils % (auto) 0.7 % (0.0-2.0); Eosinophils # (auto) 0.2 10 ^3/uL (0-0.8); Eosinophils % (auto) 3.2 % (0.0-7.0); Hematocrit 51.7 % (41.0-53.0); Hemoglobin 17.4 g/dL (13.5-17.5); Lymphocytes # (auto) 2.1 10 ^3/uL (0.4-5.4); Lymphocytes % (auto) 30.5 % (10.0-50.0); Mean Corpuscular Hemoglobin 30.2 pg (28.0-32.0); Mean Corpuscular Hgb Conc. 33.7 g/dL (32.0-36.0); Mean Corpuscular Volume 89.6 fL (80.0-100.0); Monocytes # (auto) 0.5 10 ^3/uL (0-1.3); Monocytes % (auto) 7.3 % (0.0-12.0); Neutrophils % (auto) 58.3 % (37.0-80.0); Nucleated Red Blood Cells % 0.5 %; Red Blood Cells 5.77 10^6/uL (4.5-5.90); Red Cell Distribution Width 14.3 % (11.8-14.3); White Blood Cell 6.9 10^3/uL (4.4-10.8)
[2023-06-17 10:28] LABS: Urine Bacteria NONE SEEN /hpf (None Seen); Urine Blood Negative /uL (Negative); Urine Clarity Clear (Clear); Urine Color Yellow (Yellow); Urine Protein, UAD TRACE (Negative); Urine Specific Gravity 1.025 (1.001-1.035); Urine Urobilinogen Normal (Negative); Urine pH 5.5 (5.0-8.0)
[2023-06-17 11:00] LABS: Chloride 108 mmol/L (98-107); Potassium 4.5 mmol/L (3.5-5.1); Sodium 141 mmol/L (136-145)
[2023-06-17 11:02] LABS: Anion Gap 7 (5-15); Carbon Dioxide 26 mmol/L (20-30)
[2023-06-17 11:04] LABS: Alkaline Phosphatase 68 U/L (46-116)
[2023-06-17 11:06] LABS: Alanine Aminotransferase 46 U/L (7-40)
[2023-06-17 11:07] LABS: Glucose 90 mg/dL (74-106)
[2023-06-17 11:08] LABS: Blood Urea Nitrogen 13 mg/dL (9-23); LDL Cholesterol 179 mg/dL (< 100); Triglycerides 195 mg/dL (< 150)
[2023-06-17 11:09] LABS: Aspartate Aminotransferase 33 U/L (13-40); Cholesterol 273 mg/dL (< 200); HDL Cholesterol 48 mg/dL (40-59)
[2023-06-17 11:10] LABS: Bilirubin, Total 0.7 mg/dL (0.2-1.0); Total Protein 7.7 g/dL (5.7-8.2)
[2023-06-17 12:12] LABS: BUN/Creatinine Ratio 9.8 (10.0-20.0)
== END | disposition home or self-care (01) ==
LOC: LAB 09:10
PROVIDERS: ATTEND Internal Medicine
DX: Z00.01 Encounter for general adult medical examination with abnormal findings (principal); E78.5 Hyperlipidemia, unspecified; R94.4 Abnormal results of kidney function studies; Z78.9 Other specified health status
CPT/HCPCS: 36415; 80053; 80061; 81001; 83036; 84439; 84443; 85025; 86803

== ENCOUNTER → 2024-06-26 | Outpatient (CLI) | payer BC ==
[~2024-06-26] MED LIST changes: +BUPR-581 PO; -BUPR300T28 PO
[2024-06-26 09:25] LABS: Urine Bacteria None Seen /hpf (None Seen)
[2024-06-26 09:53] LABS: Urine Blood Negative /uL (Negative); Urine Clarity Clear (Clear); Urine Color Light-Yellow (Yellow); Urine Mucus FEW (None Seen); Urine Protein, UAD Negative (Negative); Urine Specific Gravity 1.018 (1.001-1.035); Urine Squamous Epithelial Cell None Seen /hpf (<5); Urine Urobilinogen Normal (Negative); Urine WBC < 1 /HPF (0-3); Urine pH 5.5 (5.0-9.0)
[2024-06-26 11:05] LABS: Basophils # (auto) 0 10 ^3/uL (0-0.2); Basophils % (auto) 0.7 % (0.0-2.0); Eosinophils # (auto) 0.2 10 ^3/uL (0-0.8); Eosinophils % (auto) 3.7 % (0.0-7.0); Hematocrit 51.4 % (41.0-53.0); Hemoglobin 17.3 g/dL (13.5-17.5); Lymphocytes # (auto) 1.9 10 ^3/uL (0.4-5.4); Lymphocytes % (auto) 37.7 % (10.0-50.0); Mean Corpuscular Hgb Conc. 33.7 g/dL (32.0-36.0); Monocytes # (auto) 0.3 10 ^3/uL (0-1.3); Monocytes % (auto) 6.8 % (0.0-12.0); Neutrophils # (auto) 2.6 10 ^3/uL (1.6-8.6); Neutrophils % (auto) 51.1 % (37.0-80.0); Nucleated Red Blood Cells % 0.3 %; Platelet Count (auto) 231 10^3/uL (140-450); Red Blood Cells 5.78 10^6/uL (4.5-5.90); Red Cell Distribution Width 13.2 % (11.8-14.3)
[2024-06-26 12:24] LABS: Anion Gap 10 (5-15)
[2024-06-26 12:29] LABS: BUN/Creatinine Ratio 12.2 (10.0-20.0)
[2024-06-26 12:37] LABS: Alanine Aminotransferase 51 U/L (7-40); Albumin 4.9 g/dL (3.2-4.8); Alkaline Phosphatase 61 U/L (46-116); Aspartate Aminotransferase 25 U/L (13-40); Bilirubin, Total 0.6 mg/dL (0.2-1.0); Blood Urea Nitrogen 16 mg/dL (9-23); Calcium 10.3 mg/dL (8.7-10.4); Carbon Dioxide 24 mmol/L (20-31); Chloride 108 mmol/L (98-107); Glucose 98 mg/dL (74-106); Potassium 4.8 mmol/L (3.5-5.1); Sodium 142 mmol/L (136-145); Total Protein 7.2 g/dL (5.7-8.2)
[2024-06-27 15:44] LABS: Cholesterol 258 mg/dL (< 200); Triglycerides 167 mg/dL (< 150)
[2024-06-27 15:45] LABS: HDL Cholesterol 54 mg/dL (40-59); LDL Cholesterol 173 mg/dL (< 100)
== END | disposition home or self-care (01) ==
LOC: LAB 09:05
PROVIDERS: ATTEND Internal Medicine
DX: Z00.01 Encounter for general adult medical examination with abnormal findings (principal); Z13.1 Encounter for screening for diabetes mellitus; N18.2 Chronic kidney disease, stage 2 (mild); E78.2 Mixed hyperlipidemia; R74.01 Elevation of levels of liver transaminase levels; R80.9 Proteinuria, unspecified; R82.90 Unspecified abnormal findings in urine
CPT/HCPCS: 36415; 80053; 80061; 81001; 83036; 84439; 84443; 85025

== ENCOUNTER → 2024-11-17 | Outpatient (CLI) | payer BC ==
[2024-11-17 12:43] LABS: Alkaline Phosphatase 67 U/L (46-116); Anion Gap 7 (5-15); BUN/Creatinine Ratio 15.1 (10.0-20.0); Blood Urea Nitrogen 19 mg/dL (9-23); Calcium 10.4 mg/dL (8.7-10.4); Carbon Dioxide 26 mmol/L (20-31); Glucose 88 mg/dL (74-106); Potassium 4.1 mmol/L (3.5-5.1); Sodium 141 mmol/L (136-145); Total Protein 7.0 g/dL (5.7-8.2)
[2024-11-17 12:44] LABS: Albumin 4.6 g/dL (3.2-4.8); Bilirubin, Total 0.8 mg/dL (0.2-1.0); Creatine Kinase IFCC 122 U/L (46-171)
[2024-11-17 12:50] LABS: Alanine Aminotransferase 56 U/L (7-40); Chloride 108 mmol/L (98-107)
== END | disposition home or self-care (01) ==
LOC: LAB 11:46
PROVIDERS: ATTEND Internal Medicine
DX: N18.2 Chronic kidney disease, stage 2 (mild) (principal); E78.2 Mixed hyperlipidemia; R74.01 Elevation of levels of liver transaminase levels; K21.9 Gastro-esophageal reflux disease without esophagitis
CPT/HCPCS: 36415; 80053; 82550

== ENCOUNTER 2025-04-16 18:21 | Emergency (ER) | payer BC ==
[~2025-04-16] VITALS: Ht 182.9 cm; Wt 86.0 kg
[2025-04-16 19:22] LABS: Hematocrit 43.5 % (41.0-53.0); Hemoglobin 15.3 g/dL (13.5-17.5); Mean Corpuscular Hemoglobin 30.3 pg (28.0-32.0); Mean Corpuscular Volume 86.2 fL (80.0-100.0); Nucleated Red Blood Cells % 0.1 %
[2025-04-16 19:39] LABS: Albumin 4.5 g/dL (3.2-4.8); Alkaline Phosphatase 79 U/L (46-116); Anion Gap 10 (5-15); BUN/Creatinine Ratio 13.0 (10.0-20.0); Bilirubin, Total 0.7 mg/dL (0.2-1.0); Blood Urea Nitrogen 15 mg/dL (9-23); Calcium 9.4 mg/dL (8.7-10.4); Carbon Dioxide 28 mmol/L (20-31); Chloride 104 mmol/L (98-107); Glucose 88 mg/dL (74-106); Magnesium 2.0 mg/dL (1.6-2.6); Potassium 4.2 mmol/L (3.5-5.1); Sodium 142 mmol/L (136-145); Total Protein 7.1 g/dL (5.7-8.2)
--- NOTE | 2025-04-16 20:08 | ED.PDOC ---
HPI (NEURO) HPI Comments HPI: This is a 49 year old male presenting to the ED with chief complaint of facial numbness. Patient report that he has been experiencing left sided lip and tongue numbness since 1800 today with associated dizziness. Patient relays that he has had similar symptoms in the past, but never had it evaluated before. Patient denies any headache, chest pain, SOB, syncope, or fever. Past Medical History: HLD, GERD, Anxiety, Depression, Anxiety Past Surgical History: Heart Valve Repair Social History: Denies smoking, ETOH, or Drug use Medications: Wellbutrin Allergies: NKDA JONNA, LIPS AND TONGUE, TINGLING. 6PM. NORMAL EXAM, NORMAL NEURO HPI: Poor Historian. REVIEW OF SYSTEMS: CONSTITUTIONAL: Denies acute: fever, diaphoresis, chills, HEAD: Denies acute: headache, photophobia Eyes: Denies acute: Double vision, vision loss, eye pain, eye discharge. EARS: Denies acute: tinnitus, hearing loss, ear discharge, ear pain, THROAT: Denies acute: sore throat, swelling, difficulty swallowing , pain with swallowing, change in voice. NECK: Denies acute: neck pain, neck swelling, stiff neck. HEART: Denies acute : chest pain, palpitations, LUNGS: Denies acute: SOB, wheezing, cough, hemoptysis ABDOMEN: Denies acute: abdominal pain, Nausea, Vomiting, diarrhea, melena , hematemesis, hematochezia SKIN: Denies acute: rash, redness, lesions, itchiness. EXTREMITIES: Denies acute: calf pain, weakness, denies pain in extremity. Denies acute: Low back pain. Neuro: Denies acute: focal neurological deficit, motor or sensory focal neurological deficit, tremors, seizure like activity, confusion, dizziness, change in mental status, loss of bowel or bladder function, cauda equina like symptoms. : Denies acute: dysuria, hematuria, flank pain, increase in urinary frequency. PSYCH: Denies acute: hallucination, suicidal ideation, homicidal ideation. PHYSICAL EXAM: General: ----no----acute distress, awake and alert. Head: normocephalic, atraumatic. No raccoon's eyes, no andujar sign. Neck: supple, trachea is midline, no swelling. Throat: Normal phonation. Eyes:, no erythema, no purulent discharge, no proptosis, no icterus. Heart: regular rate, regular rhythm, no significant murmur appreciated. Lungs: no apparent respiratory distress, Able to speak in full sentences. No wheezing, no rhonchi, no crackles. No stridors Clear to auscultation bilaterally. Abdomen: non tender to palpation, non distended, soft, no guarding, no rebound, + bowel sounds. Neuro: Awake, Alert, oriented to name, self, situation, follows commands GCS=15. Speech is normal. Skin: no petechia, no purpura, no cyanosis, non-pale, not jaundice. Lower extremities: --no - Pitting edema no deformity, no focal swelling, no calf TTP. Makes eye contact. moves all four extremities. Face: no apparent facial droop. Ambulating in the ED independently. PERRLA, EOM-I CN 2-12 are grossly intact, No nystagmus. No nuchal rigidity, Kernig's sign, Brudzinski's sign, no meningeal signs. ED COURSE: DISCLAIMER: This medical document was created using an electronic medical record system with voice recognition software and computerized dictation system. Although this document has been carefully reviewed, there might still be some phonetic and typographical errors. Occasional wrong-word or "sound-alike" substitutions may have occurred due to the inherent limitations of voice recognition software. These areas are purely typographical due to imperfections of the software programs and do not reflect any compromise in the patient's medical care. Please read the chart carefully and recognize, using context, where these substitutions have occurred. Chief Complaint: Face pain Time Seen by MD: 20:03 Primary Care Provider: [email or web address] Reviewed Notes: Medications, Allergies Information Source: Patient Mode of Arrival: Ambulatory Was a procedure done? Was a procedure done?: No Differential Diagnosis (SZ) Seizure: N/A CVA: Velásquez's Palsy, CVA, Delirium Tremens, DKA, Drug Overdose, Electrolyte Imbalance, Encephalopathy, Hypoglycemia, Hypoxemia, Mass Lesion, Respiratory Failure, SAH, TIA, Other ( ) X-Ray, Labs, Meds, VS Vital Signs Date Time Temp Pulse Resp B/P (MAP) Pulse Ox O2 Delivery O2 Flow Rate FiO2 04/16/25 21:20 98.3 66 14 138/92 (107) 97 98.3 04/16/25 18:26 98.0 72 16 134/93 98 98.0 Lab Test 04/16/25 20:00 04/16/25 19:10 Range/Units Troponin I High Sensitivity 3 L < 3 L </=54 ng/L White Blood Count 6.6 4.4-10.8 10^3/uL Red Blood Count 5.04 4.5-5.90 10^6/uL Hemoglobin 15.3 13.5-17.5 g/dL Hematocrit 43.5 41.0-53.0 % Mean Corpuscular Volume 86.2 80.0-100.0 fL Mean Corpuscular Hemoglobin 30.3 28.0-32.0 pg Mean Corpuscular Hemoglobin Concent 35.1 32.0-36.0 g/dL Red Cell Distribution Width 13.0 11.8-14.3 % Platelet Count 216 140-450 10^3/uL Mean Platelet Volume 9.2 6.9-10.8 fL Neutrophils (%) (Auto) 49.9 37.0-80.0 % Lymphocytes (%) (Auto) 38.8 10.0-50.0 % Monocytes (%) (Auto) 7.2 0.0-12.0 % Eosinophils (%) (Auto) 3.3 0.0-7.0 % Basophils (%) (Auto) 0.8 0.0-2.0 % Neutrophils # (Auto) 3.3 1.6-8.6 10 ^3/uL Lymphocytes # (Auto) 2.5 0.4-5.4 10 ^3/uL Monocytes # (Auto) 0.5 0-1.3 10 ^3/uL Eosinophils # (Auto) 0.2 0-0.8 10 ^3/uL Basophils # (Auto) 0 0-0.2 10 ^3/uL Nucleated Red Blood Cells 0.1 % Sodium Level 142 136-145 mmol/L Potassium Level 4.2 3.5-5.1 mmol/L Chloride Level 104 98-107 mmol/L Carbon Dioxide Level 28 20-31 mmol/L Anion Gap 10 5-15 Blood Urea Nitrogen 15 9-23 mg/dL Creatinine 1.15 0.700-1.30 mg/dL Glomerular Filtration Rate Calc 78 >90 mL/min BUN/Creatinine Ratio 13.0 10.0-20.0 Serum Glucose 88 74-106 mg/dL Calcium Level 9.4 8.7-10.4 mg/dL Magnesium Level 2.0 1.6-2.6 mg/dL Total Bilirubin 0.7 0.2-1.0 mg/dL Aspartate Amino Transferase (AST) 41 H 13-40 U/L Alanine Aminotransferase (ALT) 91 H 7-40 U/L Alkaline Phosphatase 79 46-116 U/L Total Protein 7.1 5.7-8.2 g/dL Albumin 4.5 3.2-4.8 g/dL [place] [address] Ph: [phone] DIAGNOSTIC IMAGING Diagnostic Imaging Report : [id number] Signed PATIENT: JOSEPH COYLE ACCT: [id number] UNIT: [id number] : 1975 LOC: ER ROOM / BED: / AGE / SEX: 49 / M ADM STATUS: REG ER SERVICE 00 ORDERING PHYSICIAN: GINNY GIRALDO DO PROCEDURE(s): HWOCT - HEAD WITHOUT CONTRAST REASON: FACIAL NUMBNESS ORDER NUMBER(s): [id number], ACCESSION NUMBER(s): [id number] EXAM: CT HEAD WITHOUT CONTRAST INDICATION: FACIAL NUMBNESS COMPARISON: None TECHNIQUE: CT of the head without intravenous contrast. Radiation Dose Information: CT Dose: CTDI volume is 52.27 mGy. Dose-length product is 942.52 mGy*cm The dose indicators for CT are the volume Computed Tomography (CT) Dose Index (CTDIvol) and the Dose Length Product (DLP), and are measured in units of mGy and mGy-cm, respectively. These indicators are not patient dose, but values ge nerated from the CT scanner acquisition factors. The report includes radiation exposure data for exposures received during this examination. 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 Scattered hypoattenuation in the periventricular and subcortical white matter, suggestive of chronic microvascular disease. The ventricles and sulci are normal in size and configuration for the patient's age. There is no mass-effect, hemorrhage, midline shift, or abnormal extra-axial fluid collection visible. No calvarial fr acture. Essentially clear visualized paranasal sinuses. Mastoid air cells are clear. IMPRESSION: No acute intracranial hemorrhage or mass effect. ATED BY: DANIELLE MAYA MD DICTATED DATE/TIME: 04/16/252024 SIGNED BY: DANIELLE MAYA MD SIGNED DATE/TIME: 04/16/252024 CC: Time of 1ST Reevaluation: 21:03 Reevaluation 1ST: Unchanged Patient Education/Counseling: Diagnosis, Treatment Family Education/Counseling: No Family Present Comments MDM: patient presented with the above HPI.---lips and tongue tingling---workup was initiated. patient was found with the above mentioned diagnosis. the following medications were ordered: please refer to order lists of meds and tests obtained by myself Dr. Giraldo. Patient ED course and VS have been stabilized. Patient has been reassessed in the ED and remained in a stable condition. Pertinent incidental findings were discussed with the patient and/or family. Patient/family voices understanding and is agreeable with plan. Patient has been observed in the ED adequate length of time to insure improvement/stability. Escalation of care considered: Consideration of escalation to observation or admission Patient has no focal neurological deficits. His neuro exam is intact. CT scan of the head is unremarkable. Patient was DISCHARGED home in a stable condition. All the reports of any imaging studies that were ordered by myself were reviewed by myself. Departure 1 Departure Time of Disposition: 22:21 Impression: Primary Impression: Tingling of face Disposition: HOME / SELF CARE / HOMELESS Condition: Stable Additional Instructions: Additional instructions: Please read all instructions provided in this packet carefully. You MUST follow-up with your primary care/family doctor in 1 to 2 days. If you are unable to see your primary care/family doctor, please return to our emergency room for re-assessment and re-evaluation in 1 to 2 days. Return to the emergency room here in our facility or to the nearest ER [facility] if your symptoms change or worsen. CONSULTATIONS: you MUST Follow-up for consultation as soon as possible with: -neurology in 1-2 days. Please call for appointment. You MUST call the consultants office yourself to make an appointment. You may need to arrange that through your insurance and/or your primary/family doctor. If you are unable to see the virtualization consultant in 1 to 2 days, you must return to our emergency room (or any other ER of your choice) for re-assessment and re- evaluation. Adequate fluid hydration. Although you have been discharged from the Emergency Department, this does not mean that you have a "clean bill of health". No definitive diagnosis for your symptoms has been made today. It is possible that you are in the process of developing a serious illness. This is why you must return to the ED without fail if any new or worsening symptoms develop. Below is a copy of your radiological report for follow up: [place] [address] Ph: [phone] DIAGNOSTIC IMAGING Diagnostic Imaging Report : [id number] Signed PATIENT: JOSEPH COYLE ACCT: [id number] UNIT: [id number] : 1975 LOC: ER ROOM / BED: / AGE / SEX: 49 / M ADM STATUS: REG ER SERVICE 190 ORDERING PHYSICIAN: GINNY GIRALDO DO PROCEDURE(s): HWOCT - HEAD WITHOUT CONTRAST REASON: FACIAL NUMBNESS ORDER NUMBER(s): [id number], ACCESSION NUMBER(s): [id number] EXAM: CT HEAD WITHOUT CONTRAST INDICATION: FACIAL NUMBNESS COMPARISON: None TECHNIQUE: CT of the head without intravenous contrast. Radiation Dose Information: CT Dose: CTDI volume is 52.27 mGy. Dose-length product is 942.52 mGy*cm The dose indicators for CT are the volume Computed Tomography (CT) Dose Index (CTDIvol) and the Dose Length Product (DLP), and are measured in units of mGy and mGy-cm, respectively. These indicators are not patient dose, but values generated from the CT scanner acquisition factors. The report includes radiation exposure data for exposures received during this examination. 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 Scattered hypoattenuation in the periventricular and subcortical white matter, suggestive of chronic microvascular disease. The ventricles and sulci are normal in size and configuration for the patient's age. There is no mass-effect, hemorrhage, midline shift, or abnormal extra-axial fluid collection visible. No calvarial fracture. Essentially clear visualized paranasal sinuses. Mastoid air cells are clear. IMPRESSION: No acute intracranial hemorrhage or mass effect. ATED BY: DANIELEL MAYA MD DICTATED DATE/TIME: 04/16/252024 SIGNED BY: DANIELLE MAYA MD SIGNED DATE/TIME: 04/16/252024 CC: Discharged With: Self Critical Care Note Critical Care Time?: No I personally scribed for GINNY GIRALDO DO ([email or web address]) on 04/16/25 at 20:08. Electronically submitted by Severiano Pascal ([email or web address]). I personally scribed for GINNY GIRALDO DO ([email or web address]) on 04/16/25 at 21:40. Electronically submitted by Severiano Pascal ([email or web address]). GINNY GIRALDO DO Apr 16, 2025 20:08
--- NOTE | 2025-04-16 20:28 | DVH ---
EXAM: CT HEAD WITHOUT CONTRAST INDICATION: FACIAL NUMBNESS COMPARISON: None TECHNIQUE: CT of the head without intravenous contrast. Radiation Dose Information: CT Dose: CTDI volume is 52.27 mGy. Dose-length product is 942.52 mGy*cm The dose indicators for CT are the volume Computed Tomography (CT) Dose Index (CTDIvol) and the Dose Length Product (DLP), and are measured in units of mGy and mGy-cm, respectively. These indicators are not patient dose, but values generated from the CT scanner acquisition factors. The report includes radiation exposure data for exposures received during this examination. 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 Scattered hypoattenuation in the periventricular and subcortical white matter, suggestive of chronic microvascular disease. The ventricles and sulci are normal in size and configuration for the patient's age. There is no mass-effect, hemorrhage, midline shift, or abnormal extra-axial fluid collection visible. No calvarial fracture. Essentially clear visualized paranasal sinuses. Mastoid air cells are clear. IMPRESSION: No acute intracranial hemorrhage or mass effect.
[2025-04-16 20:38] LABS: Alanine Aminotransferase 91 U/L (7-40)
[2025-04-16 21:20] VITALS: BP 138/92; PULSE 66; RESP 14; TEMP 98.3; O2SAT 97
== END 2025-04-16 23:22 | disposition home or self-care (01) ==
LOC: ER 18:21
DX: R20.0 Anesthesia of skin (principal); R20.2 Paresthesia of skin; E78.5 Hyperlipidemia, unspecified; K21.9 Gastro-esophageal reflux disease without esophagitis; F32.A Depression, unspecified; F41.9 Anxiety disorder, unspecified; Z79.899 Other long term (current) drug therapy
CPT/HCPCS: 36415; 70450; 80053; 83735; 84484; 85025

== ENCOUNTER 2025-04-24 09:16 | Outpatient (CLI) | payer BC ==
[2025-04-24 10:45] LABS: Albumin 4.6 g/dL (3.2-4.8); Alkaline Phosphatase 74 U/L (46-116); Anion Gap 10 (5-15); BUN/Creatinine Ratio 10.6 (10.0-20.0); Blood Urea Nitrogen 14 mg/dL (9-23); Calcium 9.9 mg/dL (8.7-10.4); Carbon Dioxide 26 mmol/L (20-31); Chloride 107 mmol/L (98-107); Cholesterol 186 mg/dL (< 200); Glucose 96 mg/dL (74-106); HDL Cholesterol 55 mg/dL (40-59); Potassium 4.6 mmol/L (3.5-5.1); Sodium 143 mmol/L (136-145); Total Protein 7.4 g/dL (5.7-8.2)
[2025-04-24 10:46] LABS: Bilirubin, Total 0.7 mg/dL (0.2-1.0)
[2025-04-24 10:47] LABS: Alanine Aminotransferase 85 U/L (7-40)
[2025-04-24 10:58] LABS: Triglycerides 182 mg/dL (< 150)
== END 2025-04-24 17:00 | disposition home or self-care (01) ==
LOC: LAB 09:16
PROVIDERS: ATTEND Internal Medicine
DX: N18.2 Chronic kidney disease, stage 2 (mild) (principal); E78.2 Mixed hyperlipidemia; K21.9 Gastro-esophageal reflux disease without esophagitis
CPT/HCPCS: 36415; 80053; 80061